=== PATIENT | male | born 1980 | race Caucasian/White ===

== ENCOUNTER 2017-12-08 23:05 | Emergency (ER) | payer BC, OTHER ==
[~2017-12-08] VITALS: Ht 182.9 cm; Wt 91.0 kg
[~2017-12-08 23:05] MED LIST: CEPH500C2 PO
--- NOTE | 2017-12-08 23:14 | Medical Consult ---
Consultation Date of Consultation: Dec 08, 2017. Attending Physician: Reason for Consultation: 37 yo male s/p sinonasal surgery (septoplasty, turbinate reduction and FESS) by Dr. Garcia on 11/28/17. Had routine post op debridement in the office by Dr. Garcia on Sunday. Was doing well until early Sunday morning when he had a brisk right sided nose bleed. This stopped spontaneously. He had another one around 5pm this evening which again stopped spontaneously. Had yet another around 9pm. He states that he can get these stopped with pressure and placing gauze up his nose. I instructed him to come to the ED for evaluation due to the recurrence of the bleeding and the briskness which he described. He states the bleeding has been all right sided but has noted some blood out of the left nare too, but only after the right side was bleeding briskly first. Allergies Coded Allergies: Amoxicillin (Verified Adverse Reaction, Unknown, rough on stomach, 12/08/17 ) Azithromycin (Verified Adverse Reaction, Unknown, stomach pain, 12/08/17) Clavulanic Acid (Verified Adverse Reaction, Unknown, rough on stomach, ) Review of Systems Constitutional: No fever, No chills, No sweats, No weight loss, No weakness, No fatigue, No problem reported Eyes: No worsening of vision, No eye pain, No redness, No discharge, No diplopia, No problem reported ENT: + problem reported (see HPI) Respiratory: No cough, No sputum, No wheezing, No shortness of breath, No dyspnea on exertion, No dyspnea at rest, No hemoptysis, No problem reported Cardiovascular: No chest pain, No orthopnea, No PND, No edema, No claudication , No palpitations, No problem reported Neurologic: No memory loss, No paralysis, No weakness, No numbness/tingling, No vertigo, No balance problems, No problem reported Allergic / Immunologic: No environmental allergies, No seasonal allergies, No pet sensitivities, No food allergies, No hives, No frequent infections, No poor healing, No prolonged convalescence, No problem reported Physical Exam PROCEDURE: Control of epistaxis The bilateral gauze was removed from the anterior nose. No active bleeding was noted. The left side was examined first and there was no active bleeding. Some minimal granulation tissue was suctioned from the left side of the nose. No bleeding. The right side was then examined and again no active bleeding noted. After anesthetizing his nose with 4% topical lidocaine it was evaluated as well. Some mild granulation was removed with suction. No active bleeding was noted. Due to the recurrence of the bleeding and the briskness which the patient describes, a pack was placed on the right side. A 7.5 balloon pack was placed and inflated. Patient tolerated well. He was watched by myself in the ED for approximately 20-30 minutes and had no further bleeding. General Appearance: WD/WN, no apparent distress Head: normocephalic, atraumatic Eyes: normal inspection, EOMI ENT: + pertinent finding (No blood on the posterior pharyngeal wall. ) Neck: supple, no adenopathy Respiratory/Chest: no respiratory distress, no accessory muscle use Cardiovascular: no edema, no JVD Extremities/Musculoskelatal: normal inspection, normal range of motion Neurologic/Psych: manager of enterprise II-XII nml as tested, normal mood/affect Skin: normal color, warm/dry, no rash Lymphatic: no adenopathy Assessment & Plan 37 yo male s/p sinonasal surgery by Dr. Garcia on 11/28/17 who has had several brisk right sided bouts of epistaxis - 7.5 balloon pack placed as above into the right nare - no bleeding from the nose or on the posterior pharyngeal wall after placement and after recheck 20-30 minutes later. - he has antibiotic and pain medication at home from his surgery. He was instructed to continue these - he will follow up with Dr. Garcia Sunday
[2017-12-08 23:20] VITALS: TEMP 36.8; Ht 182.9 cm; Wt 91.0 kg
[2017-12-08] MEDS ORDERED: LIDOCAINE 4% W/AFRIN NASAL SOLN 4ML ONE (23:31)
[2017-12-08] MEDS ORDERED: OXYCODONE HCL IR 5 MG TAB (IMMEDIATE RELEASE) PO STA (23:38)
[2017-12-09 00:09] VITALS: BP 140/88; PULSE 74; O2SAT 99
[2017-12-09] MEDS ORDERED: OXYC-57 PO (00:10)
[2017-12-09] MEDS ORDERED: PERCOCET HOME PACK PO ONE (00:15)
--- NOTE | 2017-12-09 00:41 | EMERGENCY ROOM VISIT NOTE ---
History First contact with patient: 00:11 Chief Complaint: NOSE BLEED (MINOR) Stated Complaint: NOSE BLEED History of Present Illness The patient is a 37 year old male who presents to the Emergency Room with complaints of 3 intermittent nosebleeds throughout the day. He reports having sinus surgery on 11/[address] Lomas is also in the emergency department evaluating the patient. Review of Systems 6 system review negative. Please see pertinent positives in the history of present illness section. Social History Smoking Status: Never Smoker Current/Historical Medications Scheduled PRN Oxycodone/Acetaminophen 5MG/325MG (Percocet 5MG/325MG), 1-2 TABS PO Q4H PRN for Pain Physical Exam Vital Signs Date Time Temp Pulse Resp B/P (MAP) Pulse Ox O2 Delivery O2 Flow Rate FiO2 12/09/17 00:09 74 16 140/88 99 Room Air 12/08/17 23:20 36.8 86 18 110/77 94 Room Air Physical Exam VITALS: Vitals are noted on the nurse's note and reviewed by myself. Vital signs stable. GENERAL: 37-year-old male, mildly uncomfortable in appearance,, HEAD: Slight old ecchymosis noted inferior to the right eye NOSE: Right naris has packing in place. No significant active bleeding. NEURO: Patient was alert and oriented to person place and time. Medical Decision & Procedures Medications Administered Medications (Trade) Dose Ordered Sig/Ana Route Start Time Stop Time Status Last Admin Dose Admin Oxycodone HCl (Roxicodone Immediate Rel Tab) 5 mg NOW STAT PO 12/08/17 23:38 12/08/17 23:42 DC 12/08/17 23:44 5 MG Oxycodone/ Acetaminophen (Percocet 5/ 325MG Home Pack) 1 homepack UD ONCE PO 12/09/17 00:15 12/09/17 00:16 DC 12/09/17 00:[address] Lomas examined the patient as noted above. He placed a nasal packing in the right naris. The patient was observed for approximately 1 hour with no significant further bleeding The patient was given a home pack of Percocet Discharge instructions were provided per Dr. Lomas's recommendations. The patient was discharged in good condition with family as driving Medical Decision This patient is a 37-year-old male presents to the emergency department with intermittent nosebleeding in the setting of sinus surgery on 11/28. Dr. Lomas from ENT personally evaluated the patient first. A nasal packing was placed. I followed up with the patient. No significant bleeding was noted. Per Dr. Lomas's instructions, the patient was provided with a home pack of Percocet in addition to a prescription of Percocet. He will continue antibiotics as prescribed, and follow-up with the ENT doctor first thing on Sunday. He agreed to return to the emergency department with any new or concerning symptoms. This chart was completed in part utilizing [employer] Speech Voice Recognition software. Attempts were made to minimize the grammatical errors, random word insertions, pronoun errors and incomplete sentences. Any formal questions or concerns about the content, text or information contained within the body of this dictation should be directly addressed to the provider for clarification. Impression Primary Impression: Epistaxis Departure Information Dispostion Home / Self-Care Condition GOOD Prescriptions Oxycodone/Acetaminophen 5MG/325MG (PERCOCET 5MG/325MG) Tab 1-2 TABS PO Q4H Y for Pain, #30 TAB For Initial Treatment Prov: Na Barr PA-C 12/09/17 Referrals Julian Lou M.D.(STANISLAW) (PCP) Santiago Garcia M.D. Forms WORK / SCHOOL INSTRUCTIONS, HOME CARE DOCUMENTATION FORM, IMPORTANT VISIT INFORMATION Patient Instructions My [facility] Additional Instructions Please keep the packing in place Please continue antibiotics as prescribed Percocet 1-2 tabs every 4 hours for severe pain. Do not drink alcohol or drive while taking this medication. This may be taken with ibuprofen, but avoid Tylenol. Please call the ENT doctor first thing on Sunday for a follow-up appointment Please do not hesitate to return to the emergency department with any new, worsening or concerning symptoms It has been a pleasure participating in your care
[2017-12-10] MEDS ORDERED: MELATAB2 PO (04:38)
[2017-12-10] MEDS ORDERED: CITA20TA9 PO (04:38)
[2017-12-11] MEDS ORDERED: AFRIN NAE ×2 (08:49→09:03)
== END 2017-12-09 00:45 | disposition home or self-care (01) ==
LOC: C.EDB 23:07
DX: R04.0 Epistaxis (principal); Z98.890 Other specified postprocedural states; Z88.0 Allergy status to penicillin; Z88.1 Allergy status to other antibiotic agents; Z91.048 Other nonmedicinal substance allergy status

== ENCOUNTER 2017-12-10 04:07 | Emergency (ER) | payer OTHER ==
[~2017-12-10] VITALS: Ht 182.9 cm; Wt 92.7 kg
[~2017-12-10 04:07] MED LIST changes: +OXYC-57 PO
[2017-12-10] MEDS ORDERED: OXYMETAZOLINE HCL 0.05% NA SPR 15 ML BTL ONE (04:30)
[2017-12-10] MEDS ORDERED: MELATAB2 PO (04:38)
[2017-12-10] MEDS ORDERED: CITA20TA9 PO (04:38)
[2017-12-10 04:48] LABS: BASO % 0.2 %; BASO ABS # 0.02 K/uL (0-0.2); EOS % 0.4 %; EOS ABS # 0.04 K/uL (0-0.5); HEMATOCRIT 42.4 % (42-52); IG# 0.03 K/uL (0.00-0.02); LYMPH % 6.9 %; LYMPH ABS # 0.72 K/uL (1.2-3.4); MEAN CELL VOLUME 93.6 fL (80-100); MEAN CORPUSCULAR HEMOGLOBIN 33.1 pg (25-34); MEAN CORPUSCULAR HGB CONC 35.4 g/dl (32-36); MEAN PLATELET VOLUME 8.8 fL (7.4-10.4); MONO % 6.3 %; MONO ABS # 0.66 K/uL (0.11-0.59); NEUT % 85.9 %; NEUT ABS # 9.01 K/uL (1.4-6.5); PLATELET COUNT 153 K/uL (130-400); RED CELL DISTRIBUTION WIDTH CV 11.9 % (11.5-14.5); RED CELL DISTRIBUTION WIDTH SD 40.3 fL (36.4-46.3); WHITE BLOOD COUNT 10.48 K/uL (4.8-10.8)
[2017-12-10 04:58] LABS: PTT PATIENT 26.8 SECONDS (21.0-31.0)
--- NOTE | 2017-12-10 06:19 | EMERGENCY ROOM VISIT NOTE ---
History First contact with patient: 04:10 Chief Complaint: NOSE BLEED (MINOR) Stated Complaint: NOSE BLEED History of Present Illness The patient is a 37 year old male who presents to the Emergency Room with complaints of epistaxis that began about 1 hour ago. The patient has recent sinus surgery by Dr. Garcia, [facility], about 12 days ago. The patient was doing well immediately after the procedure, but about 36 hours ago had an episode of epistaxis. At that time the on-call ENT was Dr Lomas, who did come to the ER and pack the right-sided nares at that time. The patient did follow with Dr Garcia yesterday in the office, where a new packing was placed. The patient states tonight he was sleeping when he awoke to an episode of epistaxis. He does not have pain or injury. He rates his discomfort a 1/10. His bleeding has stopped. He arrives via ambulance. Review of Systems More than 10 systems were reviewed and otherwise negative with the exception of history of present illness. Past Medical/Surgical History Recent sinus surgery Family History No pertinent family history Social History Smoking Status: Never Smoker Housing Status: lives with family Current/Historical Medications Scheduled Cephalexin Monohydrate (Keflex), 500 MG PO QID Citalopram Hydrobromide (Celexa), 30 MG PO DAILY Melatonin (Melatonin Maximum Strengt), 1 TAB PO HS Scheduled PRN Oxycodone/Acetaminophen 5MG/325MG (Percocet 5MG/325MG), 1-2 TABS PO Q4H PRN for Pain Physical Exam Vital Signs Date Time Temp Pulse Resp B/P (MAP) Pulse Ox O2 Delivery O2 Flow Rate FiO2 12/10/17 06:09 84 18 91/52 98 Room Air 12/10/17 04:46 82 12/10/17 04:15 36.7 82 20 120/71 96 Room Air Physical Exam VITALS: Vitals are noted on the nurse's note and reviewed by myself. Vital signs stable. GENERAL: Well-developed, well-nourished, white male, who is in no acute distress and resting comfortably. Patient is cooperative with the examination. NOSE: Packing is appreciated in the bilateral nares. No active bleeding noted. MOUTH: Mucous membranes moist. Tonsils are not enlarged. Pharynx with scant blood in the posterior pharynx. No active bleeding. HEART: Regular rate and rhythm without murmurs gallops or rubs. LUNGS: Clear to auscultation bilaterally without wheezes, rales or rhonchi. No retractions or accessory muscle use. Medical Decision & Procedures Laboratory Results 12/10/17 04:36 Red Blood Count 4.53, Mean Corpuscular Volume 93.6, Mean Corpuscular Hemoglobin 33.1, Mean Corpuscular Hemoglobin Concent 35.4, Mean Platelet Volume 8.8, Neutrophils (%) (Auto) 85.9, Lymphocytes (%) (Auto) 6.9, Monocytes (%) (Auto) 6.3, Eosinophils (%) (Auto) 0.4, Basophils (%) (Auto) 0.2, Neutrophils # (Auto) 9.01, Lymphocytes # (Auto) 0.72, Monocytes # (Auto) 0.66, Eosinophils # (Auto) 0.04, Basophils # (Auto) 0.02 Test 12/10/17 04:36 White Blood Count 10.48 K/uL (4.8-10.8) Red Blood Count 4.53 M/uL (4.7-6.1) Hemoglobin 15.0 g/dL (14.0-18.0) Hematocrit 42.4 % (42-52) Mean Corpuscular Volume 93.6 fL (80-100) Mean Corpuscular Hemoglobin 33.1 pg (25-34) Mean Corpuscular Hemoglobin Concent 35.4 g/dl (32-36) Platelet Count 153 K/uL (130-400) Mean Platelet Volume 8.8 fL (7.4-10.4) Neutrophils (%) (Auto) 85.9 % Lymphocytes (%) (Auto) 6.9 % Monocytes (%) (Auto) 6.3 % Eosinophils (%) (Auto) 0.4 % Basophils (%) (Auto) 0.2 % Neutrophils # (Auto) 9.01 K/uL (1.4-6.5) Lymphocytes # (Auto) 0.72 K/uL (1.2-3.4) Monocytes # (Auto) 0.66 K/uL (0.11-0.59) Eosinophils # (Auto) 0.04 K/uL (0-0.5) Basophils # (Auto) 0.02 K/uL (0-0.2) RDW Standard Deviation 40.3 fL (36.4-46.3) RDW Coefficient of Variation 11.9 % (11.5-14.5) Immature Granulocyte % (Auto) 0.3 % Immature Granulocyte # (Auto) 0.03 K/uL (0.00-0.02) Prothrombin Time 10.7 SECONDS (9.0-12.0) Prothromb Time International Ratio 1.0 (0.9-1.1) Activated Partial Thromboplast Time 26.8 SECONDS (21.0-31.0) Partial Thromboplastin Ratio 1.0 ED Course Physical exam and history were performed. Nursing notes, EMR, and Medication List were personally reviewed. Patient appears to have epistaxis following sinus surgery. On arrival the patient appears without active bleeding. I spoke with Dr Garcia, who requested that we check a CBC and bleeding times. Dr. Garcia indicated that he would come to the ER to evaluate the patient. The patient remained in stable condition until Dr Garcia's evaluation. Due to the late-phase recurrent bleeding following the surgery, Dr. Garcia would like to have the patient observed here in the hospital. I did speak with the [facility]ist, who agreed to evaluate the patient here in the department. Please see their dictation for further patient course, plan, and disposition. The chart was completed utilizing [employer] Speech Voice Recognition Software. Grammatical errors, random word insertions, pronoun errors, and incomplete sentences are an occasional consequence of this system due to software limitations, ambient noise, and hardware issues. Any formal questions or concerns about the content, text, or information contained within the body of this dictation should be directly addressed to the provider for clarification. . Medical Decision Differential diagnosis: Etiologies such as anterior epistaxis, coagulopathy, traumatic injury, fracture , septal hematoma, posterior epistaxis as well as other pathologies were entertained. Impression Primary Impression: Epistaxis Departure Information Referrals Julian Lou M.D.(HUGH) (PCP) Patient Instructions My [facility]
[2017-12-10 08:03] VITALS: O2SAT 94; Ht 182.9 cm; Wt 92.7 kg
[2017-12-10] MEDS ORDERED: IV FLUIDS COMPLETED PRN (08:15)
[2017-12-10 08:59] VITALS: BP 112/72; PULSE 75; TEMP 36.5; O2SAT 98
[2017-12-10] MEDS ORDERED: ACETAMINOPHEN 325 MG TAB PO PRN (09:00)
[2017-12-10] MEDS ORDERED: ONDANSETRON INJ 2 MG/ML 2 ML VIAL IV PRN (09:00)
[2017-12-10] MEDS ORDERED: OXYCODONE/ACETAMINOPHEN 5-325 TAB PO PRN (09:15)
[2017-12-10] MEDS ORDERED: CLONAZEPAM 0.5 MG TAB PO PRN (09:15)
--- NOTE | 2017-12-10 09:20 | History and Physical ---
History & Physical Date & Time of Service: Dec 10, 2017 ~ 0871 Chief Complaint: Nose Bleeding Primary Care Physician: Julian Lou M.D.(STANISLAW) History of Present Illness Source: patient, spouse, hospital records 37-year-old male who presents to the ER with a chief complaint of epistaxis. Patient had sinus surgery with Dr. Garcia on 11/28/17. Initially patient had no problems however 3 days ago developed epistaxis. He was seen in the ED on and had packing placed in the right nares. He then followed up with Dr. Henry yesterday who removed that packing and replaced it. Patient reports he woke up very early this morning and had a large amount of blood coming from the left nares. He was able to pack it himself and got the bleeding to stop. Patient reports this caused him to have an anxiety attack. He describes chest pain, shortness of breath, diaphoresis. Patient reports he has felt chilled but has not taken his temperature. He had some mild nausea in the ambulance ride today, however denies other abdominal pain, vomiting, diarrhea. No urinary symptoms. In the ED, there has not been any active bleeding. Dr. Garcia evaluated patient at the bedside who recommends observation overnight. Vital signs and hemoglobin are stable. Past Medical/Surgical History Medical Problems: (1) Anxiety (2) Epistaxis Surgical Problems: (1) H/O inguinal hernia repair (2) H/O sinus surgery Family History Negative for premature CAD, diabetes, CVA Social History Smoking Status: Former Smoker Alcohol Use: none Immunizations History of Influenza Vaccine: Yes Influenza Vaccine Date: Jul 08, 2017 History of Tetanus Vaccine?: Yes Tetanus Immunization Date: Aug 11, 2010 Allergies Coded Allergies: Amoxicillin (Verified Adverse Reaction, Unknown, rough on stomach, 12/08/17 ) Azithromycin (Verified Adverse Reaction, Unknown, stomach pain, 12/08/17) Clavulanic Acid (Verified Adverse Reaction, Unknown, rough on stomach, ) Home Medications Scheduled Cephalexin Monohydrate (Keflex), 500 MG PO QID Citalopram Hydrobromide (Celexa), 30 MG PO DAILY Melatonin (Melatonin Maximum Strengt), 1 TAB PO HS Scheduled PRN Oxycodone/Acetaminophen 5MG/325MG (Percocet 5MG/325MG), 1-2 TABS PO Q4H PRN for Pain Oxymetazoline HCl (Afrin Nasal [place]), 2 SPRAYS ROGER PRN PRN for EPISTAXIS Review of Systems ROS per HPI, all other systems reviewed and negative Physical Exam Vital Signs Date Time Temp Pulse Resp B/P (MAP) Pulse Ox O2 Delivery O2 Flow Rate FiO2 12/10/17 08:59 36.5 75 16 112/72 (85) 98 Room Air 12/10/17 08:37 88 12/10/17 08:03 94 Room Air 12/10/17 07:33 86 16 111/69 94 Room Air 12/10/17 06:09 84 18 91/52 98 Room Air 12/10/17 04:46 82 12/10/17 04:15 36.7 82 20 120/71 96 Room Air General Appearance: WD/WN, no apparent distress Head: normocephalic, atraumatic Eyes: EOMI, sclerae normal, + pertinent finding (Mild right periorbital bruising) ENT: hearing grossly normal, + pertinent finding (Mucous membranes moist, dried blood noted on the left nares, no active bleeding) Neck: supple, no JVD, trachea midline Respiratory/Chest: lungs clear, normal breath sounds, no respiratory distress Cardiovascular: regular rate, rhythm, no edema, normal peripheral pulses Abdomen/GI: normal bowel sounds, non tender, soft, no organomegaly Extremities/Musculoskelatal: normal inspection, no calf tenderness, normal capillary refill Neurologic/Psych: no motor/sensory deficits, alert, normal mood/affect, oriented x 3 Skin: normal color, warm/dry Diagnostics Laboratory Results Results Past 24 Hours Test 12/10/17 04:36 Range/Units White Blood Count 10.48 4.8-10.8 K/uL Red Blood Count 4.53 4.7-6.1 M/uL Hemoglobin 15.0 14.0-18.0 g/dL Hematocrit 42.4 42-52 % Mean Corpuscular Volume 93.6 80-100 fL Mean Corpuscular Hemoglobin 33.1 25-34 pg Mean Corpuscular Hemoglobin Concent 35.4 32-36 g/dl Platelet Count 153 130-400 K/uL Mean Platelet Volume 8.8 7.4-10.4 fL Neutrophils (%) (Auto) 85.9 % Lymphocytes (%) (Auto) 6.9 % Monocytes (%) (Auto) 6.3 % Eosinophils (%) (Auto) 0.4 % Basophils (%) (Auto) 0.2 % Neutrophils # (Auto) 9.01 1.4-6.5 K/uL Lymphocytes # (Auto) 0.72 1.2-3.4 K/uL Monocytes # (Auto) 0.66 0.11-0.59 K/uL Eosinophils # (Auto) 0.04 0-0.5 K/uL Basophils # (Auto) 0.02 0-0.2 K/uL RDW Standard Deviation 40.3 36.4-46.3 fL RDW Coefficient of Variation 11.9 11.5-14.5 % Immature Granulocyte % (Auto) 0.3 % Immature Granulocyte # (Auto) 0.03 0.00-0.02 K/uL Prothrombin Time 10.7 9.0-12.0 SECONDS Prothromb Time International Ratio 1.0 0.9-1.1 Activated Partial Thromboplast Time 26.8 21.0-31.0 SECONDS Partial Thromboplastin Ratio 1.0 Impression Assessment and Plan EPISTAXIS -Admit patient to [facility] -Patient presenting with epistaxis, underwent sinus surgery with Dr. Garcia on , developed epistaxis 3 days ago -Vital signs hemoglobin stable -Monitor patient closely for signs of bleeding -Continue prophylactic cephalexin to complete course -Consult Dr. Garcia ANXIETY -Continue citalopram -Patient describes severe anxiety attack with epistaxis this morning -Has been on clonazepam in the past for acute attacks with good results -Will order clonazepam 0.5 mg twice daily as needed, patient will need close follow-up with PCP DVT PROPHYLAXIS -SCDs due to epistaxis DISPOSITION -The patient will be placed as observation status for now until further work up is complete. Attending Addendum Pt was seen and examined. Agreed with Mayda GOLD exam, assessment and plan. EPISTAXIS Recent sinus surgery with Dr. Garcia on 11/29/17, developed epistaxis about 10 days after surgery Hgb has been stable No further episodes of epistaxis since admitting Continue prophylactic with cephalexin Case discussed with Dr. Garcia He already had a follow up appointment with Dr. Garcia this Please refer to Mayda GOLD for other documentation and problems. MD Carline Advanced Directives Existing Living Will: No Existing Power of Bilingual Medical Assistant: No Resuscitation Status VTE Prophylaxis Will order VTE Prophylaxis: No Reason for no VTE drug order: Contraindicated Reason no Mechanical VTE Order: Contraindicated
[2017-12-10] MEDS: CEPHALEXIN MONOHYDRATE 500 MG CAP PO SCH ×3 (12:34→21:02)
--- NOTE | 2017-12-10 14:28 | ENT CONSULTATION ---
DATE OF CONSULTATION: 12/10/2017 INDICATION FOR CONSULTATION: Epistaxis 12 days after septoplasty with nasal and sinus surgical endoscopy. PERSON REQUESTING CONSULTATION: Kalyan Wellington PA-C. HISTORY OF PRESENT ILLNESS: This is a 37-year-old man, well known to me. I performed revision nasal and sinus surgical endoscopy on 11/28/2017 at the [facility] surgery center. At the same setting, I also performed primary septoplasty and turbinate reduction. The patient did well during surgery and in the perioperative period and had no problems until postoperative day #10. He came into the [facility] ED late on the evening of December 08 and was discharged early in the morning on December 09 with a 7.5-cm Rapid Rhino in his right nostril placed by Dr. Blayne Lomas. I spoke to Dr. Lomas the next morning and decided to see the patient in my office. I removed the Rapid Rhino to make sure that it did not displace the septum too far to his previous leftward deviation. After surgery, the septum had been corrected perfectly to the midline. At my office, there was no significant bleeding. I was able to move the septum back to the midline and I put BleedArrest ER in the right nostril to replace the Rapid Rhino that had been removed. The patient was given instructions by me on how to proceed. Around 02:45 this morning, the patient experienced bleeding from the left nostril (different side than his bleeding the night before). I had provided him with a BleedArrest ER when I had seen him in my office, and he put it in. By the time he got to the hospital, around 04:00 a.m. this morning, the bleeding had stopped. Kalyan Wellington evaluated the patient and said that his vitals were stable and I asked Mr. Wellington to draw a CBC and an INR. As far as review of systems and past medical history, it is all well addressed in Mr. Wellington's dictation. PHYSICAL EXAMINATION: The patient was examined in module A10. His parents were both present. The patient was awake and alert and cooperative. There was absolutely no bleeding. ASSESSMENT AND PLAN: Epistaxis, status post revision nasal and sinus surgical endoscopy with primary septoplasty and bilateral inferior turbinate reduction. It is a bit unusual to be bleeding this far out, but so far we have no lab information that would suggest coagulopathy. Also, given that his hemoglobin was 15, he has not lost much blood in these 2 episodes. Given that he has been staying over an hour away from the hospital and he has had 2 trips within 36 hours, we decided it is best to admit the patient for at least a day and a night of observation. The [facility] hospitalist will be contacted to arrange for this and I will remain available in consultation should he bleed again. As far as recommendations for the interim, would include a face tent with cooled humidified air, Afrin at the bedside. It is important to note that at this time, the patient has BleedArrest ER in both nostrils and this should do a very good job of preventing future bleeding. KING
[2017-12-10 14:56] VITALS: BP 114/74; PULSE 95; TEMP 36.8; O2SAT 97
[2017-12-10] MEDS ORDERED: OXYMETAZOLINE HCL 0.05% NA SPR 15 ML BTL NAE PRN (17:45)
[2017-12-10] MEDS ORDERED: NURSING VERBAL MED ORDER ONE ×2 (17:45→19:00)
[2017-12-10] MEDS ORDERED: CITALOPRAM 20 MG TAB PO SCH (21:00)
[2017-12-10 22:40] VITALS: BP 112/66; PULSE 90; TEMP 36.6; O2SAT 96
[2017-12-11 06:01] LABS: HEMATOCRIT 42.8 % (42-52); HEMOGLOBIN 14.8 g/dL (14.0-18.0); MEAN CELL VOLUME 93.9 fL (80-100); MEAN CORPUSCULAR HEMOGLOBIN 32.5 pg (25-34); MEAN CORPUSCULAR HGB CONC 34.6 g/dl (32-36); MEAN PLATELET VOLUME 9.2 fL (7.4-10.4); PLATELET COUNT 167 K/uL (130-400); RED CELL DISTRIBUTION WIDTH CV 11.7 % (11.5-14.5); RED CELL DISTRIBUTION WIDTH SD 39.5 fL (36.4-46.3); WHITE BLOOD COUNT 7.17 K/uL (4.8-10.8)
[2017-12-11 06:37] LABS: CALCIUM 9.2 mg/dl (8.5-10.1); CREATININE 1.18 mg/dl (0.60-1.40); POTASSIUM 3.6 mmol/L (3.5-5.1)
[2017-12-11 08:12] VITALS: BP 113/79; PULSE 82; TEMP 37; O2SAT 96
[2017-12-11 08:21] VITALS: BP 113/79; PULSE 82; TEMP 37; O2SAT 96
[2017-12-11] MEDS: CEPHALEXIN MONOHYDRATE 500 MG CAP PO SCH (08:28)
--- NOTE | 2017-12-11 08:47 | Progress Note ---
Medicine Progress Note Date & Time of Visit: Dec 11, 2017 at 08:40. Subjective Pt was seen and examined Lying in bed with no distress Pt had no further episode of epistaxis Denies any chest pain, palpitation and SOB Objective Last 8 Hrs Date Time Temp Pulse Resp B/P (MAP) Pulse Ox O2 Delivery O2 Flow Rate FiO2 12/11/17 08:21 37.0 82 18 96 Room Air 12/11/17 08:12 37.0 82 18 113/79 (90) 96 Room Air 12/11/17 07:15 Room Air Physical Exam: General- Ismael acute distress Head- atraumatic Eyes- PERRL, EOMI ENT- oropharynx clear Neck- supple, no JVD Lungs- No wheezing Heart-no murmur Abdomen- normal bowel sounds, soft Extremities- no calf tenderness Neuro- alert, oriented x 3; PERRL, EOMI Skin- warm & dry Laboratory Results: Last 24 Hours Test 12/11/17 05:33 White Blood Count 7.17 K/uL Red Blood Count 4.56 M/uL Hemoglobin 14.8 g/dL Hematocrit 42.8 % Mean Corpuscular Volume 93.9 fL Mean Corpuscular Hemoglobin 32.5 pg Mean Corpuscular Hemoglobin Concent 34.6 g/dl RDW Standard Deviation 39.5 fL RDW Coefficient of Variation 11.7 % Platelet Count 167 K/uL Mean Platelet Volume 9.2 fL Sodium Level 138 mmol/L Potassium Level 3.6 mmol/L Chloride Level 101 mmol/L Carbon Dioxide Level 32 mmol/L Anion Gap 5.0 mmol/L Blood Urea Nitrogen 15 mg/dl Creatinine 1.18 mg/dl Est Creatinine Clear Calc Drug Dose 94.1 ml/min Estimated GFR () 90.8 Estimated GFR (Non- 78.4 BUN/Creatinine Ratio 12.8 Random Glucose 105 mg/dl Calcium Level 9.2 mg/dl Assessment & Plan EPISTAXIS Recent sinus surgery with Dr. Garcia on 11/29/17, developed epistaxis about 10 days after surgery Hgb has been stable at 14.8 No further episodes of epistaxis since admitting Continue prophylactic cephalexin to complete course Case discussed with Dr. Garcia and OK from ENT standpoint to discharge home if no further nose bleeding He already had a follow up appointment with Dr. Garcia this ANXIETY Continue citalopram Clonazepam 0.5 mg prn given in the hospital DVT PROPHYLAXIS SCDs due to epistaxis DISPOSITION Follow up with your primary care provider Dr. Lou on 12/17 @ 12:55PM Follow up with Dr. Garcia this Consultants: ENT Current Inpatient Medications: Current Inpatient Medications Medications (Trade) Dose Ordered Sig/Ana Route Start Time Stop Time Status Last Admin Dose Admin Miscellaneous (Iv Fluids Completed) 1 ea PRN PRN N/A 12/10/17 08:15 12/10/18 08:14 Acetaminophen (Tylenol Tab) 650 mg Q4H PRN PO 12/10/17 09:00 01/09/18 08:59 Ondansetron HCl (Zofran Inj) 4 mg Q6H PRN IV 12/10/17 09:00 01/09/18 08:59 Clonazepam (Klonopin Tab) 0.5 mg BID PRN PO 12/10/17 09:15 01/09/18 09:14 12/10/17 21:53 0.5 MG Cephalexin Monohydrate (Keflex Cap) 500 mg QID PO 12/10/17 13:00 12/20/17 12:59 12/11/17 08:28 500 MG Oxycodone/ Acetaminophen (Percocet 5-325mg Tab) 1 tab Q4H PRN PO 12/10/17 09:15 12/24/17 09:14 Oxymetazoline HCl (Afrin 0.05% Nasal [place]) 2 sprays PRN PRN ROGER 12/10/17 17:45 01/09/18 17:44 Citalopram Hydrobromide (celeXA TAB) 30 mg DAILY@2100 PO 12/10/17 21:00 01/09/18 20:59 12/10/17 21:02 30 MG
[2017-12-11] MEDS ORDERED: AFRIN NAE ×2 (08:49→09:03)
--- NOTE | 2017-12-11 08:54 | Discharge Instructions ---
Discharge Instructions Date of Service Dec 11, 2017. Admission Reason for Admission: Epistaxis Discharge Discharge Diagnosis / Problem: Epistaxis, Anxiety Discharge Goals Goal(s): Decrease discomfort, Improve function, Improve disease control Activity Recommendations Activity Limitations: resume your previous activity (as tolerated) . Instructions / Follow-Up Instructions / Follow-Up Follow up with your primary care provider Dr. Lou on 12/17 @ 12:55PM Follow up with Dr. Garcia this (Already had an appointment) Already has Afrin at home ( Pt was instructed to only use the afrin after a nose bleeding occurs) If nose bleeding reoccurs apply pressure for at least 15 minutes and seek medical attention . No NSAIDs( such as Motrin, aleve, naproxen, aspirin, ibuprofen, advil,..) for now due to increase risk of bleeding Current Hospital Diet Patient's current hospital diet: Regular Diet Discharge Diet Recommended Diet: Regular Diet Pending Studies Studies pending at discharge: no Medical Emergencies . Who to Call and When: Medical Emergencies: If at any time you feel your situation is an emergency, please call 911 immediately. . Non-Emergent Contact Non-Emergency issues call your: Primary Care Provider Call Non-Emergent contact if: you have a fever, you have any medication questions . . "Provider Documentation" section prepared by Diane Crowley. .
[2017-12-11] MEDS ORDERED: CITALOPRAM 20 MG TAB PO SCH (09:00)
--- NOTE | 2017-12-13 10:57 | Discharge Summary ---
Discharge Summary Date of Service Dec 13, 2017. Discharge Summary Admission Date: Dec 10, 2017 at 08:03 Discharge Date: Dec 11, 2017 Discharge Disposition: Home Principal Diagnosis: EPISTAXIS Secondary Diagnoses/Problems: ANXIETY Consultations: ENT Medication Reconciliation New Medications: Oxymetazoline HCl (Afrin Nasal [place]) 75 Sprays/15 Ml [place] 2 SPRAYS ROGER PRN PRN for EPISTAXIS for 7 Days, SPRAY Only use Afrin after nose bleeding Continued Medications: Cephalexin Monohydrate (Keflex) 500 Mg Cap 500 MG PO QID Citalopram Hydrobromide (Celexa) 20 Mg Tab 30 MG PO DAILY, TAB Melatonin (Melatonin Maximum Strengt) 5 Mg Tab 1 TAB PO HS, #30 TAB 1 Refill Oxycodone/Acetaminophen 5MG/325MG (Percocet 5MG/325MG) Tab 1-2 TABS PO Q4H PRN for Pain, #30 TAB For Initial Treatment Admission Information HPI (per Admitting provider): 37-year-old male who presents to the ER with a chief complaint of epistaxis. Patient had sinus surgery with Dr. Garcia on 11/28/17. Initially patient had no problems however 3 days ago developed epistaxis. He was seen in the ED on and had packing placed in the right nares. He then followed up with Dr. Henry yesterday who removed that packing and replaced it. Patient reports he woke up very early this morning and had a large amount of blood coming from the left nares. He was able to pack it himself and got the bleeding to stop. Patient reports this caused him to have an anxiety attack. He describes chest pain, shortness of breath, diaphoresis. Patient reports he has felt chilled but has not taken his temperature. He had some mild nausea in the ambulance ride today, however denies other abdominal pain, vomiting, diarrhea. No urinary symptoms. In the ED, there has not been any active bleeding. Dr. Garcia evaluated patient at the bedside who recommends observation overnight. Vital signs and hemoglobin are stable. Physical Exam (per Admitting): General Appearance: WD/WN, no apparent distress Head: normocephalic, atraumatic Eyes: EOMI, sclerae normal, + pertinent finding (Mild right periorbital bruising) ENT: hearing grossly normal, + pertinent finding (Mucous membranes moist, dried blood noted on the left nares, no active bleeding) Neck: supple, no JVD, trachea midline Respiratory/Chest: lungs clear, normal breath sounds, no respiratory distress Cardiovascular: regular rate, rhythm, no edema, normal peripheral pulses Abdomen/GI: normal bowel sounds, non tender, soft, no organomegaly Extremities/Musculoskelatal: normal inspection, no calf tenderness, normal capillary refill Neurologic/Psych: no motor/sensory deficits, alert, normal mood/affect, oriented x 3 Skin: normal color, warm/dry Hospital Course EPISTAXIS Recent sinus surgery with Dr. Garcia on 11/29/17, developed epistaxis about 10 days after surgery Hgb has been stable at 14.8 No further episodes of epistaxis since admitting Continue prophylactic cephalexin to complete course Case discussed with Dr. Garcia and OK from ENT standpoint to discharge home if no further nose bleeding He already had a follow up appointment with Dr. Garcia this ANXIETY Continue citalopram Clonazepam 0.5 mg prn given in the hospital DVT PROPHYLAXIS SCDs due to epistaxis DISPOSITION Follow up with your primary care provider Dr. Lou on 12/17 @ 12:55PM Follow up with Dr. Garcia this Total time spent on discharge = 35 MINUTES This includes examination of the patient, discharge planning, medication reconciliation, and communication with other providers. Discharge Instructions Discharge Instructions Date of Service Dec 11, 2017. Admission Reason for Admission: Epistaxis Discharge Discharge Diagnosis / Problem: Epistaxis, Anxiety Discharge Goals Goal(s): Decrease discomfort, Improve function, Improve disease control Activity Recommendations Activity Limitations: resume your previous activity (as tolerated) . Instructions / Follow-Up Instructions / Follow-Up Follow up with your primary care provider Dr. Lou on 12/17 @ 12:55PM Follow up with Dr. Garcia this (Already had an appointment) Already has Afrin at home ( Pt was instructed to only use the afrin after a nose bleeding occurs) If nose bleeding reoccurs apply pressure for at least 15 minutes and seek medical attention . No NSAIDs( such as Motrin, aleve, naproxen, aspirin, ibuprofen, advil,..) for now due to increase risk of bleeding Current Hospital Diet Patient's current hospital diet: Regular Diet Discharge Diet Recommended Diet: Regular Diet Pending Studies Studies pending at discharge: no Medical Emergencies . Who to Call and When: Medical Emergencies: If at any time you feel your situation is an emergency, please call 911 immediately. . Non-Emergent Contact Non-Emergency issues call your: Primary Care Provider Call Non-Emergent contact if: you have a fever, you have any medication questions . . "Provider Documentation" section prepared by Diane Crowley. . <Electronically signed by Diane Crowley M.D.> Signed: 12/12/17 0126 Signed: The status of this report is Signed * If report status is Draft, the document has not been finalized by the responsible provider. Additional Copies To Julian Lou M.D.([email or web address])
== END 2017-12-11 10:35 | disposition home or self-care (01) ==
LOC: EDBD 04:07 → C.EDA 04:08 → C.MSW 08:03 → ENRESERV 08:21
PROVIDERS: ADMIT Internal Medicine; ATTEND Internal Medicine
DX: R04.0 Epistaxis (principal); F41.9 Anxiety disorder, unspecified; Z79.899 Other long term (current) drug therapy